=== PATIENT | male | born 1995 ===

== ENCOUNTER 2018-11-10 16:15 | Emergency (ER) | payer OTHER ==
[~2018-11-10] VITALS: Ht 172.7 cm; Wt 81.6 kg
[2018-11-10] MEDS ORDERED: TDAP DIPH,PERTUSS,TET VAC/PF 0.5 ML DISP.SYRIN IM ONE (16:30)
--- NOTE | 2018-11-10 16:33 | NUR ---
PT IS IN ROOM #1A. DR SPENCE EVALUATED THE PT.
[2018-11-10] MEDS ORDERED: VANCOMYCIN IV 1,000 MG in IV DEXTROSE 5% 250 ML IV ONE (17:15)
--- NOTE | 2018-11-10 17:20 | NUR ---
[facility] WAS CALLED BY [facility] FOR POSSIBLE PT'S TRANSFER, THEY DO NOT HAVE HAND SURGEON TO PERFORM THE SURGERY. [facility] WAS CALLED BY [employer] [facility] FOR POSSIBLE PT TRANSFER, THEY DO NOT HAVE HAND SURGEON AVAILABLE AT THIS TIME. [facility] WAS CALLED BY [employer] [facility] ABOUT PT'S TRANSFER. HE SPOKE TO [facility] [employer]IST WAITING FOR HIS CALL BACK.
[2018-11-10] MEDS ORDERED: diphenhydrAMINE 50 MG/1 ML VIAL IM ONE (17:30)
[2018-11-10] MEDS ORDERED: OLANZAPINE 10 MG VIAL IM ONE ×2 (17:30)
[2018-11-10] MEDS ORDERED: diphenhydrAMINE 50 MG/1 ML VIAL ONE (17:30)
[2018-11-10] MEDS ORDERED: VANCOMYCIN IV 200 ML ONE (18:01)
[2018-11-10] MEDS ORDERED: CEFTRIAXONE 1 G in IV DEXTROSE 5% 50 ML IV ONE (18:30)
--- NOTE | 2018-11-10 18:51 | NUR ---
[facility] WAS CALLED FOR TRANSFER UPDATES. TALKED TO [facility] [employer]. THEY STIL WORKING ON THIS CASE. THEY ARE GOING TO CALL US LATER WITH UPDATES.
--- NOTE | 2018-11-10 18:59 | NUR ---
REPORT GIVEN TO ELI ROWLAND ASSOCIATE PRODUCER.
[2018-11-10 19:03] LABS: BASOPHILS # (AUTO) 0.1 K/uL (0.0-8.0); BASOPHILS % (AUTO) 0.5 % (0.0-2.0); EOSINOPHILS % (AUTO) 0.2 % (0.0-7.0); HEMATOCRIT 40.7 % (36.7-47.1); HEMOGLOBIN 13.9 g/dL (12.5-16.3); LYMPHOCYTES # (AUTO) 1.8 K/uL (20.0-40.0); MEAN CORPUSCULAR HEMOGLOBIN 27.5 uug (23.8-33.4); MEAN CORPUSCULAR HGB CONC 34 g/dL (32.5-36.3); MEAN CORPUSCULAR VOLUME 80.3 fL (73.0-96.2); MONOCYTES # (AUTO) 0.6 K/uL (2.0-10.0); MONOCYTES % (AUTO) 4.9 % (0.0-11.0); NEUTROPHILS % (AUTO) 78.4 % (38.5-71.5); PLATELET COUNT (AUTO) 254 K/uL (152-348); RED BLOOD CELL COUNT(AUTO) 5.07 MIL/uL (4.06-5.63); WHITE BLOOD COUNT (AUTO) 11.4 K/uL (3.6-10.2)
[2018-11-10 19:06] LABS: CREATININE 0.8 mg/dL (0.6-1.3); POTASSIUM 4.3 mmol/L (3.5-5.1)
[2018-11-10 19:12] LABS: BILIRUBIN,TOTAL 0.5 mg/dL (0.2-1.0); TOTAL PROTEIN, SERUM 6.9 g/dL (6.4-8.2)
[2018-11-10] MEDS ORDERED: CEFTRIAXONE 1 G VIAL ONE (19:17)
--- NOTE | 2018-11-10 19:30 | NUR ---
Received report from Luther BENITEZ, assumed care of pt., pt. is handcuffed to bed and being observed by MEL BRAUN, IV is patent and infusing
--- NOTE | 2018-11-10 20:48 | NUR ---
[facility] have removed handcuffs and left unit, security notified, will continue to monitor,
--- NOTE | 2018-11-10 21:47 | NUR ---
Spoke w/ Soren from [facility] - they "will not accept pt. unless in custody", spoke w/ Officer Randell at [facility] to attempt to talk to Sgt. Zhu who is following up on case
--- NOTE | 2018-11-10 23:00 | NUR ---
Spoke w/ Soren ptTrue to be transferred to [facility] care of Dr. Kramer, called Jeane ZUNIGA 1AM
--- NOTE | 2018-11-10 23:10 | NUR ---
Gave report to Dr. Chavarria ETA for transport 1AM
--- NOTE | 2018-11-11 00:39 | NUR ---
Pt. resting in bed, w/ eyes closed, IV site is patent, no s/s infiltration/phlebitis,
--- NOTE | 2018-11-11 01:16 | NUR ---
Spoke w/ Sourav at [facility] for update - ETA 20 min.
--- NOTE | 2018-11-11 01:54 | NUR ---
[facility] here for transport
--- NOTE | 2018-11-11 01:58 | NUR ---
Pt. taken off unit by [facility] via stretcher, NAD
== END 2018-11-11 02:02 | disposition short-term general hospital (02) ==
LOC: ER 16:18 → EDBD 16:18 → ER 11-11 02:02
DX: S62.521B Displaced fracture of distal phalanx of right thumb, initial encounter for open fracture (principal); S62.511B Displaced fracture of proximal phalanx of right thumb, initial encounter for open fracture; F29 Unspecified psychosis not due to a substance or known physiological condition; W34.010A Accidental discharge of airgun, initial encounter; Y93.89 Activity, other specified; Y92.89 Other specified places as the place of occurrence of the external cause; Y99.8 Other external cause status
CPT/HCPCS: 29125; 36415; 73140; 80053; 85025; 96365; 96366; 96372 ×2; 96375; 99285; G0480; J0696; J1200; J3370; J7060; A4217; A4663; J2358; J7030